=== PATIENT | female | born 1955 | race Caucasian/White ===

== ENCOUNTER 2021-09-04 16:58 | Inpatient (IN) ==
[2021-09-04] MEDS ORDERED: Isovue-370 500 ML BOTTLE IVP ONE (17:39)
[2021-09-04] MEDS ORDERED: Ipratropium/Albuterol Neb 3 ML IH ONE (18:05)
[2021-09-04 18:58] LABS: Bilirubin,Urine Negative (Negative); Blood,Urine Negative (Negative); Clarity,Urine Clear (Clear); Color,Urine Yellow (Yellow); Glucose,Urine (UA) Normal (Normal); Hyaline Casts,Urine Few per lpf (None Seen); Ketones,Urine Negative (Negative); Leukocyte Esterase,Urine Large (Negative); Mucus,Urine Few per lpf (None-Few); Nitrite,Urine Negative (Negative); PH,Urine 5.5 pH Units (5.0-8.0); Protein,Urine Trace mg/dL (Neg-Trace); Specific Gravity,Urine 1.026 (1.010-1.025); Squamous Epithelial Cell,Urine Few per hpf (None-Few); Urobilinogen,Urine Normal (Normal); WBC,Urine 30-50 per hpf (0-3)
[2021-09-04 19:39] LABS: Basophils # 0.1 K/mcL (0.0-0.2); Basophils % 0.7 %; Eosinophils # 0.3 K/mcL (0.0-0.6); Eosinophils % 2.9 %; Hematocrit 46.1 % (35.3-44.9); Hemoglobin 15.4 g/dL (11.5-15.4); Immature Granulocytes % 0.3 % (0-4); Lymphocytes # 2.7 K/mcL (0.6-4.6); Lymphocytes % 27.8 %; Mean Corpuscular HGB Conc 33.4 g/dL (31.6-35.5); Mean Corpuscular Volume 89.7 fL (83.0-100.0); Mean Platelet Volume 9.5 fL (9.4-12.4); Monocytes # 0.6 K/mcL (0.0-1.3); Monocytes % 6.5 %; Neutrophils # 6.1 K/mcL (1.6-8.9); Platelet Count 312 K/mcL (140-400); Red Blood Count 5.14 M/mcL (3.82-4.97); Red Cell Distribution Width 13.1 % (11.5-14.5); Segmented Neutrophils % 61.8 %; White Blood Count 9.8 K/mcL (4.3-11.1)
[2021-09-04 19:48] LABS: INR 1.5
[2021-09-04 19:51] LABS: Activated Partial Thrombo Time 39.1 Seconds (26.0-36.0)
[2021-09-04 20:02] LABS: BUN/Creatinine Ratio 17 (6-26); Blood Urea Nitrogen 16 mg/dL (8-23); Calcium 10.1 mg/dL (8.6-10.3); Carbon Dioxide 25 mEq/L (23-29); Chloride 103 mEq/L (98-107); Glucose 97 mg/dL (70-105); Osmolality,Calculated 285 (280-300); Potassium 3.6 mEq/L (3.5-5.1); Sodium 137 mEq/L (136-145); Troponin I < 0.03 ng/mL (< 0.04); eGFR For African Americans > 60 (> 60); eGFR For Non-African Americans > 60 (> 60)
[2021-09-04] MEDS ORDERED: Morphine Sulfate 2 MG/ML SYRINGE IVP ONE (21:23)
[2021-09-04] MEDS ORDERED: *HR* Heparin 5,000 UNIT/ML VIAL IVP PRN (21:29)
[2021-09-04] MEDS ORDERED: cefTRIAXone 1,000 MG in 0.9 % Sodium Chloride Mini Bag 100 ML IVPB ONE (21:32)
[2021-09-04] MEDS ORDERED: Azithromycin 500 MG in 0.9 % Sodium Chloride 250 ML IVPB ONE (21:32)
[2021-09-04] MEDS: Heparin 25,000UNIT/250ML 1/2NS 25,000 UNIT/250 ML IV.SOLN IVC SCH (22:40)
[2021-09-04 23:09] LABS: Influenza A PCR Negative (Negative); Influenza B PCR Negative (Negative); Resp. Syncytial Virus PCR Negative (Negative)
[2021-09-04 23:10] LABS: SARS-CoV-2 by PCR (In House) Negative (Negative)
[2021-09-04] MEDS ORDERED: Naloxone 0.4 MG/ML INJ IVP PRN (23:36)
[2021-09-05] MEDS: Acetaminophen 325 MG TABLET PO PRN ×2 (03:04→09:16)
[2021-09-05] MEDS ORDERED: *HR* OxyCODONE/APAP 10/325 TABLET PO PRN ×2 (03:10→08:41)
[2021-09-05 04:43] LABS: Basophils # 0.1 K/mcL (0.0-0.2); Basophils % 0.5 %; Eosinophils # 0.2 K/mcL (0.0-0.6); Eosinophils % 2.1 %; Hematocrit 43.9 % (35.3-44.9); Hemoglobin 14.8 g/dL (11.5-15.4); Immature Granulocytes % 0.2 % (0-4); Lymphocytes # 2.5 K/mcL (0.6-4.6); Lymphocytes % 26.8 %; Mean Corpuscular HGB Conc 33.7 g/dL (31.6-35.5); Mean Corpuscular Hemoglobin 29.5 pg (28.0-33.3); Mean Corpuscular Volume 87.6 fL (83.0-100.0); Mean Platelet Volume 9.5 fL (9.4-12.4); Monocytes # 0.8 K/mcL (0.0-1.3); Monocytes % 8.8 %; Neutrophils # 5.6 K/mcL (1.6-8.9); Platelet Count 302 K/mcL (140-400); Red Blood Count 5.01 M/mcL (3.82-4.97); Red Cell Distribution Width 12.7 % (11.5-14.5); Segmented Neutrophils % 61.6 %; White Blood Count 9.2 K/mcL (4.3-11.1)
[2021-09-05 04:56] LABS: INR 1.3; Prothrombin Time 14.7 Seconds (9.4-12.1)
[2021-09-05 04:58] LABS: Alanine Aminotransferase 9 Units/L (7-52); Albumin/Globulin Ratio 1.4 (1.1-2.2); Alkaline Phosphatase 47 Units/L (34-104); Aspartate Amino Transferase 16 Units/L (13-39); BUN/Creatinine Ratio 18 (6-26); Bilirubin,Total 0.6 mg/dL (0.3-1.0); Blood Urea Nitrogen 13 mg/dL (8-23); Calcium 9.6 mg/dL (8.6-10.3); Carbon Dioxide 23 mEq/L (23-29); Chloride 105 mEq/L (98-107); Globulin 2.9 g/dL (2.4-3.5); Glucose 110 mg/dL (70-105); Magnesium 1.8 mg/dL (1.6-2.6); Osmolality,Calculated 283 (280-300); Phosphorous 3.1 mg/dL (2.7-4.5); Potassium 3.6 mEq/L (3.5-5.1); Sodium 136 mEq/L (136-145); Total Protein 6.9 g/dL (6.4-8.9); eGFR For African Americans > 60 (> 60); eGFR For Non-African Americans > 60 (> 60)
[2021-09-05] MEDS ORDERED: *HR* LORazepam 2 MG/ML VIAL IVP ONE (05:44)
[2021-09-05] MEDS ORDERED: ALPRAZolam 1 MG TABLET PO ONE (06:00)
[2021-09-05] MEDS: Ondansetron 4 MG/2 ML VIAL IVP PRN ×2 (06:02→21:50)
[2021-09-05] MEDS: *HR* OxyCODONE Immed Rel 5 MG TABLET PO SCH ×4 (09:15→20:48)
[2021-09-05] MEDS ORDERED: Perflutren Lipid Microsphere 1.3 ML in 0.9 % Sodium Chloride 8.7 ML IVP PRN (12:29)
[2021-09-05] MEDS ORDERED: ALPRAZolam 1 MG TABLET PO SCH (13:00)
[2021-09-05] MEDS: Azithromycin 250 MG TABLET PO SCH (18:12)
[2021-09-05] MEDS: Heparin 25,000UNIT/250ML 1/2NS 25,000 UNIT/250 ML IV.SOLN IVC SCH (20:46)
[2021-09-05] MEDS: cefTRIAXone 1,000 MG in 0.9 % Sodium Chloride 10 ML IVP SCH (20:47)
[2021-09-05] MEDS: *HR* Heparin 5,000 UNIT/ML VIAL IVP PRN (20:48)
[2021-09-06] MEDS ORDERED: *HR* Promethazine 25 MG/ML VIAL IM ONE (03:00)
[2021-09-06] MEDS: Acetaminophen 325 MG TABLET PO PRN ×2 (03:06→18:21)
[2021-09-06] MEDS: ALPRAZolam 1 MG TABLET PO PRN ×3 (03:06→15:33)
[2021-09-06 03:24] LABS: Basophils % 0.4 %; Eosinophils # 0.1 K/mcL (0.0-0.6); Eosinophils % 1.4 %; Hematocrit 44.4 % (35.3-44.9); Hemoglobin 14.8 g/dL (11.5-15.4); Immature Granulocytes % 0.4 % (0-4); Lymphocytes # 1.9 K/mcL (0.6-4.6); Mean Corpuscular HGB Conc 33.3 g/dL (31.6-35.5); Mean Corpuscular Hemoglobin 29.8 pg (28.0-33.3); Mean Corpuscular Volume 89.3 fL (83.0-100.0); Mean Platelet Volume 9.3 fL (9.4-12.4); Monocytes # 0.5 K/mcL (0.0-1.3); Monocytes % 6.8 %; Neutrophils # 4.5 K/mcL (1.6-8.9); Platelet Count 296 K/mcL (140-400); Red Blood Count 4.97 M/mcL (3.82-4.97); Red Cell Distribution Width 12.7 % (11.5-14.5); White Blood Count 7.1 K/mcL (4.3-11.1)
[2021-09-06] MEDS: Thyroid (Amour) 30 MG TABLET PO SCH (05:26)
[2021-09-06] MEDS: *HR* OxyCODONE Immed Rel 5 MG TABLET PO SCH ×4 (10:14→21:22)
[2021-09-06] MEDS: Venlafaxine XR (24 HR) 150 MG CAP.ER.24H PO SCH (10:15)
[2021-09-06] MEDS: cefTRIAXone 1,000 MG in 0.9 % Sodium Chloride 10 ML IVP SCH (10:15)
[2021-09-06] MEDS: Tolterodine LA (24 HR) 4 MG CAP.ER.24H PO SCH (10:20)
[2021-09-06] MEDS ORDERED: Ergocalciferol (VIT D2) 50,000 UNIT (1.25MG) CAP PO SCH (12:00)
[2021-09-06] MEDS: *HR* Heparin 5,000 UNIT/ML VIAL IVP PRN (13:09)
[2021-09-06] MEDS: Ondansetron 4 MG/2 ML VIAL IVP PRN (16:57)
[2021-09-06] MEDS: Azithromycin 250 MG TABLET PO SCH (18:21)
[2021-09-07] MEDS: Heparin 25,000UNIT/250ML 1/2NS 25,000 UNIT/250 ML IV.SOLN IVC SCH ×2 (00:45→17:18)
[2021-09-07] MEDS: ALPRAZolam 1 MG TABLET PO PRN ×2 (02:29→22:27)
[2021-09-07] MEDS: Melatonin 3 MG TABLET PO PRN ×2 (02:33→22:27)
[2021-09-07] MEDS: *HR* OxyCODONE Immed Rel 5 MG TABLET PO SCH ×4 (03:12→21:04)
[2021-09-07 03:26] LABS: Basophils # 0.1 K/mcL (0.0-0.2); Basophils % 0.8 %; Eosinophils # 0.2 K/mcL (0.0-0.6); Eosinophils % 2.3 %; Hematocrit 40.9 % (35.3-44.9); Hemoglobin 13.8 g/dL (11.5-15.4); Immature Granulocytes % 0.2 % (0-4); Lymphocytes # 3.5 K/mcL (0.6-4.6); Lymphocytes % 41.7 %; Mean Corpuscular HGB Conc 33.7 g/dL (31.6-35.5); Mean Corpuscular Hemoglobin 29.4 pg (28.0-33.3); Mean Platelet Volume 9.6 fL (9.4-12.4); Monocytes # 0.8 K/mcL (0.0-1.3); Monocytes % 9.3 %; Neutrophils # 3.8 K/mcL (1.6-8.9); Platelet Count 315 K/mcL (140-400); Red Cell Distribution Width 12.7 % (11.5-14.5); Segmented Neutrophils % 45.7 %; White Blood Count 8.4 K/mcL (4.3-11.1)
[2021-09-07] MEDS: Thyroid (Amour) 30 MG TABLET PO SCH (06:35)
[2021-09-07] MEDS: Tolterodine LA (24 HR) 4 MG CAP.ER.24H PO SCH (07:43)
[2021-09-07] MEDS: Venlafaxine XR (24 HR) 150 MG CAP.ER.24H PO SCH (07:43)
[2021-09-07] MEDS: cefTRIAXone 1,000 MG in 0.9 % Sodium Chloride 10 ML IVP SCH (07:43)
[2021-09-07] MEDS: Gabapentin 300 MG CAPSULE PO SCH ×2 (14:43→21:04)
[2021-09-07] MEDS: *HR* Rivaroxaban 10 MG TABLET PO SCH (17:17)
[2021-09-07] MEDS: Azithromycin 250 MG TABLET PO SCH (17:17)
[2021-09-07] MEDS: lisinopriL 20 MG TABLET PO SCH (21:04)
[2021-09-08] MEDS: *HR* OxyCODONE Immed Rel 5 MG TABLET PO SCH ×4 (03:18→20:42)
[2021-09-08] MEDS: Thyroid (Amour) 30 MG TABLET PO SCH (03:18)
[2021-09-08 03:26] LABS: Basophils # 0.1 K/mcL (0.0-0.2); Basophils % 0.8 %; Eosinophils # 0.2 K/mcL (0.0-0.6); Eosinophils % 2.8 %; Hematocrit 42.2 % (35.3-44.9); Hemoglobin 14.4 g/dL (11.5-15.4); Immature Granulocytes % 0.2 % (0-4); Lymphocytes # 3.1 K/mcL (0.6-4.6); Lymphocytes % 35.3 %; Mean Corpuscular HGB Conc 34.1 g/dL (31.6-35.5); Mean Corpuscular Hemoglobin 29.7 pg (28.0-33.3); Mean Platelet Volume 9.4 fL (9.4-12.4); Monocytes % 11.5 %; Neutrophils # 4.3 K/mcL (1.6-8.9); Platelet Count 308 K/mcL (140-400); Red Blood Count 4.85 M/mcL (3.82-4.97); Red Cell Distribution Width 12.6 % (11.5-14.5); Segmented Neutrophils % 49.4 %; White Blood Count 8.7 K/mcL (4.3-11.1)
[2021-09-08] MEDS: Gabapentin 300 MG CAPSULE PO SCH ×3 (08:44→20:41)
[2021-09-08] MEDS: Venlafaxine XR (24 HR) 150 MG CAP.ER.24H PO SCH (08:44)
[2021-09-08] MEDS: Tolterodine LA (24 HR) 4 MG CAP.ER.24H PO SCH (08:45)
[2021-09-08] MEDS: cefTRIAXone 1,000 MG in 0.9 % Sodium Chloride 10 ML IVP SCH (08:45)
[2021-09-08] MEDS: ALPRAZolam 1 MG TABLET PO PRN ×2 (13:42→20:41)
[2021-09-08] MEDS: *HR* Rivaroxaban 10 MG TABLET PO SCH (17:28)
[2021-09-08] MEDS: Azithromycin 250 MG TABLET PO SCH (17:28)
[2021-09-08] MEDS: lisinopriL 20 MG TABLET PO SCH (20:41)
[2021-09-08] MEDS: Melatonin 3 MG TABLET PO PRN (23:03)
[2021-09-09] MEDS: *HR* OxyCODONE Immed Rel 5 MG TABLET PO SCH ×2 (02:51→08:07)
[2021-09-09] MEDS: Thyroid (Amour) 30 MG TABLET PO SCH (05:48)
[2021-09-09 06:42] VITALS: O2SAT 91
[2021-09-09 07:36] LABS: Basophils # 0.1 K/mcL (0.0-0.2); Basophils % 0.9 %; Eosinophils # 0.4 K/mcL (0.0-0.6); Eosinophils % 4.8 %; Hematocrit 44.2 % (35.3-44.9); Hemoglobin 15.1 g/dL (11.5-15.4); Immature Granulocytes % 0.6 % (0-4); Lymphocytes # 3.4 K/mcL (0.6-4.6); Lymphocytes % 38.6 %; Mean Corpuscular HGB Conc 34.2 g/dL (31.6-35.5); Mean Corpuscular Volume 87.9 fL (83.0-100.0); Mean Platelet Volume 10.1 fL (9.4-12.4); Monocytes % 11.3 %; Neutrophils # 3.9 K/mcL (1.6-8.9); Platelet Count 294 K/mcL (140-400); Red Blood Count 5.03 M/mcL (3.82-4.97); Red Cell Distribution Width 13.2 % (11.5-14.5); Segmented Neutrophils % 43.8 %; White Blood Count 8.9 K/mcL (4.3-11.1)
[2021-09-09] MEDS: ALPRAZolam 1 MG TABLET PO PRN (08:06)
[2021-09-09] MEDS: Tolterodine LA (24 HR) 4 MG CAP.ER.24H PO SCH (08:07)
[2021-09-09] MEDS: Gabapentin 300 MG CAPSULE PO SCH (08:07)
[2021-09-09] MEDS: Venlafaxine XR (24 HR) 150 MG CAP.ER.24H PO SCH (08:07)
[2021-09-09] MEDS: cefTRIAXone 1,000 MG in 0.9 % Sodium Chloride 10 ML IVP SCH (08:08)
[2021-09-09 11:11] VITALS: BP 113/65; PULSE 85; TEMP 97.5
== END 2021-09-09 12:42 | disposition home health service (06) | DRG 175 ==
LOC: 2ANU 16:58 → EMEROOARM 16:58 → 2ANU 23:16 → SUATTDRO 09-05 10:43
PROVIDERS: ADMIT Family Medicine; ATTEND Pharmacist

== ENCOUNTER 2021-11-26 16:21 | Inpatient (IN) ==
[2021-11-26 17:52] LABS: Basophils # 0.1 K/mcL (0.0-0.2); Basophils % 0.5 %; Eosinophils # 0.1 K/mcL (0.0-0.6); Eosinophils % 0.4 %; Hematocrit 39.1 % (35.3-44.9); Hemoglobin 13.5 g/dL (11.5-15.4); Immature Granulocytes % 2.4 % (0-4); Lymphocytes # 2.2 K/mcL (0.6-4.6); Mean Corpuscular HGB Conc 34.5 g/dL (31.6-35.5); Mean Corpuscular Volume 89.7 fL (83.0-100.0); Mean Platelet Volume 9.2 fL (9.4-12.4); Monocytes # 1.3 K/mcL (0.0-1.3); Monocytes % 7.1 %; Neutrophils # 14.4 K/mcL (1.6-8.9); Platelet Count 641 K/mcL (140-400); Red Blood Count 4.36 M/mcL (3.82-4.97); Red Cell Distribution Width 13.2 % (11.5-14.5); Segmented Neutrophils % 77.6 %; White Blood Count 18.6 K/mcL (4.3-11.1)
[2021-11-26 17:59] LABS: INR 2.4; Prothrombin Time 26.5 Seconds (9.4-12.1)
[2021-11-26 18:13] LABS: Alanine Aminotransferase 13 Units/L (7-52); Albumin 3.4 g/dL (3.5-5.7); Albumin/Globulin Ratio 0.8 (1.1-2.2); Alkaline Phosphatase 83 Units/L (34-104); Aspartate Amino Transferase 20 Units/L (13-39); BUN/Creatinine Ratio 16 (6-26); Bilirubin,Direct 0.2 mg/dL (0.0-0.2); Bilirubin,Indirect 0.5 mg/dL (0.0-1.0); Bilirubin,Total 0.7 mg/dL (0.3-1.0); Blood Urea Nitrogen 16 mg/dL (8-23); Calcium 9.4 mg/dL (8.6-10.3); Carbon Dioxide 25 mEq/L (23-29); Chloride 97 mEq/L (98-107); Ethanol < 10 mg/dL (Less than 10); Globulin 4.1 g/dL (2.4-3.5); Glucose 106 mg/dL (70-105); Osmolality,Calculated 274 (280-300); Potassium 3.3 mEq/L (3.5-5.1); Sodium 131 mEq/L (136-145); Total Protein 7.5 g/dL (6.4-8.9); Troponin I < 0.03 ng/mL (< 0.04)
[2021-11-26 18:16] LABS: Influenza A PCR Negative (Negative); Influenza B PCR Negative (Negative); Resp. Syncytial Virus PCR Negative (Negative)
[2021-11-26 18:39] LABS: SARS-CoV-2 by PCR (In House) Positive (Negative)
[2021-11-26] MEDS ORDERED: cefTRIAXone 1,000 MG in Water for inj. (sterile) 10 ML IVP ONE (20:43)
[2021-11-26] MEDS ORDERED: Azithromycin 500 MG in 0.9 % Sodium Chloride 250 ML IVPB ONE (20:43)
[2021-11-26 21:25] LABS: Bacteria,Urine Few per hpf (None-Few); Bilirubin,Urine Negative (Negative); Blood,Urine Negative (Negative); Clarity,Urine Ex.Turbid (Clear); Color,Urine Orange (Yellow); Glucose,Urine (UA) Normal (Normal); Granular Casts,Urine Few per lpf (None Seen); Hyaline Casts,Urine Many per lpf (None Seen); Ketones,Urine Trace mg/dL (Negative); Leukocyte Esterase,Urine Moderate (Negative); Mucus,Urine Many per lpf (None-Few); Nitrite,Urine Negative (Negative); Protein,Urine 100 mg/dL (Neg-Trace); Specific Gravity,Urine 1.028 (1.010-1.025); Squamous Epithelial Cell,Urine Moderate per hpf (None-Few); Transitional Epi Cells,Urine Few per hpf (None-Few); Urobilinogen,Urine Normal (Normal); WBC,Urine 30-50 per hpf (0-3); Waxy Casts,Urine Few per lpf (None Seen)
[2021-11-26 21:29] LABS: Amphetamine Screen,Urine Negative ng/mL (Cutoff=1000); Barbiturate Screen,Urine Negative ng/mL (Cutoff=200); Benzodiazepines Screen,Urine Positive ng/mL (Cutoff=200); Cannabinoid Screen,Urine Negative ng/mL (Cutoff = 50); Cocaine Screen,Urine Negative ng/mL (Cutoff= 300); Opiate Screen,Urine Positive ng/mL (Cutoff=300); Phencyclidine Screen,Urine Negative ng/mL (Cutoff=25)
[2021-11-26] MEDS ORDERED: Acetaminophen 325 MG TABLET PO PRN (22:00)
[2021-11-26] MEDS ORDERED: Naloxone 0.4 MG/ML INJ IVP PRN (22:00)
[2021-11-26] MEDS ORDERED: Ondansetron 4 MG/2 ML VIAL IVP PRN (22:00)
[2021-11-26 22:21] LABS: Acetaminophen < 10 mcg/mL (10-20); Salicylate < 2.5 mg/dL (15.0-30.0)
[2021-11-26] MEDS ORDERED: Saline Nasal Spray 44 ML BOTTLE NS PRN (22:54)
[2021-11-26] MEDS ORDERED: *HR* OxyCODONE Immed Rel 5 MG TABLET PO ONE ×2 (23:36→23:56)
[2021-11-27 03:28] LABS: VBG HCO3 19 mEq/L (21-27); VBG PCO2 23 mmHg (41-51); VBG PH 7.54 pH Units (7.32-7.42); VBG PO2 167 mmHg (25-50)
[2021-11-27 04:01] LABS: INR 1.7; Prothrombin Time 18.9 Seconds (9.4-12.1)
[2021-11-27 04:02] LABS: Activated Partial Thrombo Time 29.8 Seconds (26.0-36.0)
[2021-11-27] MEDS: Ipratropium 1 PUFF INHALER IH SCH ×4 (04:07→20:23)
[2021-11-27 04:19] LABS: Folate 13.4 ng/mL (3.0-16.0); Vitamin B12 > 1500 pg/mL (250-1100)
[2021-11-27 04:38] LABS: Ferritin 663 ng/mL (10-120)
[2021-11-27 04:57] LABS: Hematocrit 38.4 % (35.3-44.9); Hemoglobin 12.7 g/dL (11.5-15.4); Mean Corpuscular HGB Conc 33.1 g/dL (31.6-35.5); Mean Corpuscular Hemoglobin 29.6 pg (28.0-33.3); Mean Platelet Volume 9.7 fL (9.4-12.4); Platelet Count 624 K/mcL (140-400); Red Blood Count 4.29 M/mcL (3.82-4.97); Red Cell Distribution Width 13.4 % (11.5-14.5); Segmented Neutrophils % 75.7 %; White Blood Count 17.5 K/mcL (4.3-11.1)
[2021-11-27 04:58] LABS: Basophils # 0.1 K/mcL (0.0-0.2); Basophils % 0.7 %; Eosinophils # 0.1 K/mcL (0.0-0.6); Eosinophils % 0.6 %; Immature Granulocytes % 1.8 % (0-4); Lymphocytes % 11.6 %; Monocytes # 1.7 K/mcL (0.0-1.3); Monocytes % 9.6 %; Neutrophils # 13.3 K/mcL (1.6-8.9)
[2021-11-27 05:01] LABS: Mean Corpuscular Volume 89.5 fL (83.0-100.0)
[2021-11-27 05:02] LABS: Alanine Aminotransferase 10 Units/L (7-52); Albumin 3.2 g/dL (3.5-5.7); Albumin/Globulin Ratio 0.9 (1.1-2.2); Alkaline Phosphatase 76 Units/L (34-104); Aspartate Amino Transferase 21 Units/L (13-39); BUN/Creatinine Ratio 22 (6-26); Bilirubin,Total 0.7 mg/dL (0.3-1.0); Blood Urea Nitrogen 15 mg/dL (8-23); Calcium 8.7 mg/dL (8.6-10.3); Carbon Dioxide 20 mEq/L (23-29); Chloride 100 mEq/L (98-107); Globulin 3.4 g/dL (2.4-3.5); Glucose 116 mg/dL (70-105); Magnesium 1.4 mg/dL (1.6-2.6); Osmolality,Calculated 274 (280-300); Phosphorous 2.6 mg/dL (2.7-4.5); Potassium 3.5 mEq/L (3.5-5.1); Sodium 131 mEq/L (136-145); Total Protein 6.6 g/dL (6.4-8.9)
[2021-11-27 05:17] LABS: C-Reactive Protein 275 mg/L (Less than 10); Lactate Dehydrogenase 420 Units/L (140-271)
[2021-11-27] MEDS ORDERED: Chlorhexidine Rinse 15 ML MOUTHWASH MM SCH (09:00)
[2021-11-27] MEDS: Multivit/Ca/Min/Fe/FA 1 TAB TABLET PO SCH ×2 (09:25→09:32)
[2021-11-27] MEDS: Aspirin Enteric Coated 81 MG Tablet PO SCH (09:26)
[2021-11-27] MEDS: Lactobacillus 1 EACH CAP.SPRINK PO SCH ×2 (09:26→20:09)
[2021-11-27] MEDS: Artificial Tears SOLN 15 ML BOTTLE BOTH EYES SCH ×2 (09:27→20:09)
[2021-11-27] MEDS: Furosemide 20 MG/2 ML VIAL IVP SCH (09:31)
[2021-11-27] MEDS: cefTRIAXone 1,000 MG in 0.9 % Sodium Chloride Mini Bag 100 ML IVPB SCH (09:32)
[2021-11-27] MEDS: Azithromycin 500 MG in 0.9 % Sodium Chloride 250 ML IVPB SCH (10:38)
[2021-11-27] MEDS: Budesonide/Formoterol 160/4.5 1 PUFF INH IH SCH ×2 (11:06→20:24)
[2021-11-27] MEDS: *HR* Rivaroxaban 10 MG TABLET PO SCH (15:20)
[2021-11-27] MEDS ORDERED: *HR* Rivaroxaban 10 MG TABLET PO SCH (17:00)
[2021-11-27] MEDS: Melatonin 3 MG TABLET PO PRN (20:09)
[2021-11-28] MEDS: Ipratropium 1 PUFF INHALER IH SCH ×4 (04:19→22:31)
[2021-11-28 09:12] LABS: BUN/Creatinine Ratio 33 (6-26); Blood Urea Nitrogen 20 mg/dL (8-23); Calcium 9.4 mg/dL (8.6-10.3); Carbon Dioxide 16 mEq/L (23-29); Chloride 101 mEq/L (98-107); Glucose 105 mg/dL (70-105); Magnesium 1.7 mg/dL (1.6-2.6); Osmolality,Calculated 279 (280-300); Potassium 3.6 mEq/L (3.5-5.1); Sodium 133 mEq/L (136-145)
[2021-11-28] MEDS: *HR* Rivaroxaban 10 MG TABLET PO SCH (10:12)
[2021-11-28] MEDS: Lactobacillus 1 EACH CAP.SPRINK PO SCH ×2 (10:12→19:56)
[2021-11-28] MEDS: Aspirin Enteric Coated 81 MG Tablet PO SCH (10:12)
[2021-11-28] MEDS: Multivit/Ca/Min/Fe/FA 1 TAB TABLET PO SCH ×2 (10:12→10:28)
[2021-11-28] MEDS: Azithromycin 500 MG in 0.9 % Sodium Chloride 250 ML IVPB SCH (10:13)
[2021-11-28] MEDS: Furosemide 20 MG/2 ML VIAL IVP SCH (10:24)
[2021-11-28] MEDS: cefTRIAXone 1,000 MG in 0.9 % Sodium Chloride Mini Bag 100 ML IVPB SCH (10:27)
[2021-11-28] MEDS: Budesonide/Formoterol 160/4.5 1 PUFF INH IH SCH ×2 (10:45→22:31)
[2021-11-28] MEDS: Artificial Tears SOLN 15 ML BOTTLE BOTH EYES SCH ×2 (12:35→20:07)
[2021-11-28] MEDS ORDERED: tiZANidine 4 MG TABLET PO PRN (14:22)
[2021-11-28] MEDS ORDERED: *HR* OxyCODONE Immed Rel 5 MG TABLET PO PRN (14:22)
[2021-11-28] MEDS ORDERED: ALPRAZolam 1 MG TABLET PO PRN (14:22)
[2021-11-28] MEDS: Gabapentin 300 MG CAPSULE PO SCH ×3 (16:07→19:57)
[2021-11-28] MEDS: Ampicillin/Sulbactam 3,000 MG in 0.9 % Sodium Chloride Mini Bag 100 ML IVPB SCH (17:53)
[2021-11-28] MEDS: Melatonin 3 MG TABLET PO PRN (19:56)
[2021-11-28] MEDS: lisinopriL 20 MG TABLET PO SCH (19:57)
[2021-11-29] MEDS: Ampicillin/Sulbactam 3,000 MG in 0.9 % Sodium Chloride Mini Bag 100 ML IVPB SCH ×4 (01:33→18:16)
[2021-11-29] MEDS: Ipratropium 1 PUFF INHALER IH SCH ×4 (03:47→20:06)
[2021-11-29] MEDS: Thyroid (Amour) 30 MG TABLET PO SCH (06:10)
[2021-11-29] MEDS: *HR* Rivaroxaban 10 MG TABLET PO SCH (08:56)
[2021-11-29] MEDS: Aspirin Enteric Coated 81 MG Tablet PO SCH (08:56)
[2021-11-29] MEDS: Tolterodine LA (24 HR) 4 MG CAP.ER.24H PO SCH (08:56)
[2021-11-29] MEDS: Multivit/Ca/Min/Fe/FA 1 TAB TABLET PO SCH ×2 (08:56→14:45)
[2021-11-29] MEDS: Lactobacillus 1 EACH CAP.SPRINK PO SCH ×2 (08:56→21:07)
[2021-11-29] MEDS: Gabapentin 300 MG CAPSULE PO SCH ×3 (08:56→21:07)
[2021-11-29] MEDS: Artificial Tears SOLN 15 ML BOTTLE BOTH EYES SCH ×2 (08:57→21:07)
[2021-11-29] MEDS: Furosemide 20 MG/2 ML VIAL IVP SCH (08:58)
[2021-11-29] MEDS: Azithromycin 500 MG in 0.9 % Sodium Chloride 250 ML IVPB SCH (08:59)
[2021-11-29] MEDS ORDERED: Ergocalciferol (VIT D2) 50,000 UNIT (1.25MG) CAP PO SCH (09:00)
[2021-11-29] MEDS: Venlafaxine XR (24 HR) 150 MG CAP.ER.24H PO SCH (09:02)
[2021-11-29] MEDS: Fenofibrate 54 MG TABLET PO SCH (09:26)
[2021-11-29] MEDS: Budesonide/Formoterol 160/4.5 1 PUFF INH IH SCH ×2 (11:33→20:07)
[2021-11-29 12:45] LABS: Calcium 9.4 mg/dL (8.6-10.3); Potassium 5.5 mEq/L (3.5-5.1)
[2021-11-29 14:40] LABS: Basophils # 0.1 K/mcL (0.0-0.2); Basophils % 0.4 %; Segmented Neutrophils % 83.8 %
[2021-11-29 14:42] LABS: Eosinophils # 0.2 K/mcL (0.0-0.6); Eosinophils % 1.5 %; Hematocrit 40.6 % (35.3-44.9); Hemoglobin 14.6 g/dL (11.5-15.4); Immature Granulocytes % 3.4 % (0-4); Lymphocytes % 7.6 %; Mean Corpuscular Hemoglobin 31.1 pg (28.0-33.3); Mean Corpuscular Volume 86.4 fL (83.0-100.0); Monocytes # 0.4 K/mcL (0.0-1.3); Monocytes % 3.3 %; Platelet Count 735 K/mcL (140-400); Red Cell Distribution Width 13.2 % (11.5-14.5); White Blood Count 13.2 K/mcL (4.3-11.1)
[2021-11-29] MEDS: lisinopriL 20 MG TABLET PO SCH (21:06)
[2021-11-30] MEDS: Ampicillin/Sulbactam 3,000 MG in 0.9 % Sodium Chloride Mini Bag 100 ML IVPB SCH ×4 (01:04→22:48)
[2021-11-30] MEDS: Ipratropium 1 PUFF INHALER IH SCH ×4 (04:25→23:21)
[2021-11-30] MEDS: Thyroid (Amour) 30 MG TABLET PO SCH (05:53)
[2021-11-30] MEDS: Multivit/Ca/Min/Fe/FA 1 TAB TABLET PO SCH (08:48)
[2021-11-30] MEDS: Aspirin Enteric Coated 81 MG Tablet PO SCH (08:48)
[2021-11-30] MEDS: Lactobacillus 1 EACH CAP.SPRINK PO SCH ×2 (08:48→21:09)
[2021-11-30] MEDS: Tolterodine LA (24 HR) 4 MG CAP.ER.24H PO SCH (08:49)
[2021-11-30] MEDS: Fenofibrate 54 MG TABLET PO SCH (08:49)
[2021-11-30] MEDS: Venlafaxine XR (24 HR) 150 MG CAP.ER.24H PO SCH (08:49)
[2021-11-30] MEDS: *HR* Rivaroxaban 10 MG TABLET PO SCH (08:50)
[2021-11-30] MEDS: Gabapentin 300 MG CAPSULE PO SCH ×3 (08:50→21:09)
[2021-11-30] MEDS: Azithromycin 500 MG in 0.9 % Sodium Chloride 250 ML IVPB SCH (09:03)
[2021-11-30] MEDS: Furosemide 20 MG/2 ML VIAL IVP SCH (09:05)
[2021-11-30] MEDS: Budesonide/Formoterol 160/4.5 1 PUFF INH IH SCH ×2 (10:08→23:21)
[2021-11-30] MEDS: Artificial Tears SOLN 15 ML BOTTLE BOTH EYES SCH ×2 (10:34→21:16)
[2021-11-30] MEDS: lisinopriL 20 MG TABLET PO SCH (21:09)
[2021-12-01] MEDS: Ampicillin/Sulbactam 3,000 MG in 0.9 % Sodium Chloride Mini Bag 100 ML IVPB SCH ×2 (01:00→05:46)
[2021-12-01] MEDS: Ipratropium 1 PUFF INHALER IH SCH ×3 (04:08→15:13)
[2021-12-01] MEDS: Thyroid (Amour) 30 MG TABLET PO SCH (05:49)
[2021-12-01 07:11] LABS: Calcium 9.8 mg/dL (8.6-10.3); Magnesium 1.9 mg/dL (1.6-2.6); Potassium 3.4 mEq/L (3.5-5.1)
[2021-12-01 07:20] LABS: Basophils % 0.3 %; Eosinophils % 0.2 %; Hematocrit 42.5 % (35.3-44.9); Hemoglobin 14.4 g/dL (11.5-15.4); Lymphocytes # 2.8 K/mcL (0.6-4.6); Lymphocytes % 22.3 %; Mean Corpuscular HGB Conc 33.9 g/dL (31.6-35.5); Mean Corpuscular Hemoglobin 29.5 pg (28.0-33.3); Mean Corpuscular Volume 87.1 fL (83.0-100.0); Mean Platelet Volume 9.2 fL (9.4-12.4); Monocytes # 1.3 K/mcL (0.0-1.3); Monocytes % 10.2 %; Neutrophils # 8.2 K/mcL (1.6-8.9); Platelet Count 776 K/mcL (140-400); Red Blood Count 4.88 M/mcL (3.82-4.97); Red Cell Distribution Width 13.5 % (11.5-14.5); White Blood Count 12.4 K/mcL (4.3-11.1)
[2021-12-01 08:12] VITALS: O2SAT 91
[2021-12-01] MEDS: Gabapentin 300 MG CAPSULE PO SCH ×2 (09:47→15:58)
[2021-12-01] MEDS: Aspirin Enteric Coated 81 MG Tablet PO SCH (09:47)
[2021-12-01] MEDS: Multivit/Ca/Min/Fe/FA 1 TAB TABLET PO SCH (09:47)
[2021-12-01] MEDS: Lactobacillus 1 EACH CAP.SPRINK PO SCH (09:47)
[2021-12-01] MEDS: *HR* Rivaroxaban 10 MG TABLET PO SCH (09:47)
[2021-12-01] MEDS: Fenofibrate 54 MG TABLET PO SCH (09:47)
[2021-12-01] MEDS: Tolterodine LA (24 HR) 4 MG CAP.ER.24H PO SCH (09:53)
[2021-12-01] MEDS: Artificial Tears SOLN 15 ML BOTTLE BOTH EYES SCH (09:53)
[2021-12-01] MEDS: Venlafaxine XR (24 HR) 150 MG CAP.ER.24H PO SCH (09:53)
[2021-12-01] MEDS: Azithromycin 500 MG in 0.9 % Sodium Chloride 250 ML IVPB SCH (09:54)
[2021-12-01] MEDS: Furosemide 20 MG/2 ML VIAL IVP SCH (09:54)
[2021-12-01] MEDS ORDERED: dexAMETHasone 4 MG TABLET PO SCH (10:15)
[2021-12-01] MEDS: Budesonide/Formoterol 160/4.5 1 PUFF INH IH SCH (10:52)
[2021-12-01 12:11] VITALS: BP 179/96; PULSE 78; TEMP 98.7
== END 2021-12-01 17:45 | disposition home health service (06) | DRG 871 ==
LOC: 3NENU 16:21 → EMEROOARM 16:21 → SUATTDRO 22:01 → 3NENU 22:46 → SUATTDRO 11-27 15:02
PROVIDERS: ADMIT Internal Medicine; ATTEND Family Medicine